=== PATIENT | male | born 1945 | race Caucasian/White ===

== ENCOUNTER 2022-05-04 05:35 | Day surgery (SDC) | payer MEDICARE, OTHER ==
[~2022-05-04] VITALS: Ht 178 cm; Wt 93.0 kg
[~2022-05-04 05:35] MED LIST: AMLODIPINE BESY10 MG PO; B COMPLEX1 EACH PO; CENTRUM COMPLE1 EACH PO; CLARITIN10 MG PO; CYANOCOBAL1000 MCG/1 IM; FISH OIL 1,2001 EAC1 PO; LOSARTAN POTASS25 MG PO; LOVASTATIN40 MG PO; MONTELUKAST SOD10 MG PO; PAXIL20 MG PO; PROBIOTIC1 EAC6 PO; PROTONIX 40MG T40 MG PO; TENORMIN50 MG PO; TRAMADOL HCL50 MG PO; TYLENOL ARTHRI650 MG PO
[2022-05-04] MEDS ORDERED: ASPIRIN325 MG PO (11:02)
[2022-05-05 06:32] LABS: BASOPHIL 0.2 % (0-2); EOSINOPHIL 0.2 % (0-7); HCT 33.8 % (42.0-52.0); HGB 11.3 g/dl (13.2-18.0); LYMPHOCYTE 10.2 % (15-48); MCHC 33.4 g/dL (32.0-36.0); MCV 98.8 fL (78.0-100.0); MONOCYTE 10.5 % (0-12); MPV 9.7 fL (6.0-9.5); NEUTROPHIL 78.4 % (41-80); NRBC 0; PLT 186 K/uL (150-400); RBC 3.42 M/uL (4.70-6.00); RDW 13.1 % (11.5-14.0); WBC 10.6 K/uL (4.0-10.5)
[2022-05-05 06:55] LABS: BUN/CREAT RATIO (CALC) 26.3 RATIO; CREATININE 0.76 mg/dL (0.67-1.17); POTASSIUM 3.8 mmol/L (3.5-5.1)
[2022-05-05] MEDS ORDERED: OXYCODONE-ACET1 EAC1 PO (08:39)
[2022-05-05] MEDS ORDERED: FEOSOL325 MG PO (08:39)
== END 2022-05-05 11:13 | disposition home or self-care (01) ==
LOC: FAS 05:35 → FMS 09:10 → FAS 05-05 11:13
PROVIDERS: Legal Medicine
DX: M12.811 Other specific arthropathies, not elsewhere classified, right shoulder (principal); M24.011 Loose body in right shoulder; G89.18 Other acute postprocedural pain; I10 Essential (primary) hypertension; E78.5 Hyperlipidemia, unspecified; G47.30 Sleep apnea, unspecified; K21.9 Gastro-esophageal reflux disease without esophagitis; Z79.891 Long term (current) use of opiate analgesic; Z79.899 Other long term (current) drug therapy
CPT/HCPCS: 36415; 73020; 80048; 85025; 86850; 86900; 86901; 94010; 94762; 97162; 97166; 97530-GP; 97535; C1713; C1776; J0171; J0697; J1100; J1885; J2250; J2270; J2370; J2704; J2795; J3010; J7120